=== PATIENT | female | born 1960 | race Caucasian/White ===

== ENCOUNTER 2017-04-19 14:41 | Observation (INO) ==
[2017-04-19] MEDS ORDERED: ONDANSETRON 4 MG/2 ML INJECTION IVP PRN (15:16)
[2017-04-19 16:52] VITALS: BMI 23.0
--- NOTE | 2017-04-19 17:08 | History & Physical Report ---
<Farhana Lyons V - Last Filed: 04/19/17 17:04> History of Present Illness Date: 04/19/17 Chief complaint: RLE DVT HPI: Yessi is a pleasant 56-year-old female who has been under the care of Dr. Jose Barnett Do with [facility]. Patient presented to see him yesterday in which he underwent outpatient d-dimer draw that was elevated greater than 1600. She then had an outpatient venous Doppler of the right lower extremity. Today that did reveal a acute DVT in the common femoral vein. She is noted to be hypertensive and tachycardic. Due to these findings, she was advised to come to [facility] for direct admission for further medical workup and treatment. Patient is seen on initial arrival to [facility]. She is alert, oriented and pleasant. She does give an extensive history of recent illnesses. She reports on March 23 she was diagnosed with salmonella and had approximately 2 weeks of significant diarrhea and dehydration. She reports that during this time she started to become tachycardic and heart rate was into the 180s at one point. She reports that on March 30 she started having significant neck pain. She has been under the treatment of a chiropractor for neck pain. She also developed right lower extremity discomfort at that time. It was thought that she had muscular in nature type symptoms. Last , April 13. She did take a road trip to [place], [place] and returned the following day. She has continued to have pain in the right lower extremity. Since that time. Other risk factors include hormone replacement therapy. She is a former smoker however quit in 1995. Review of Systems Comprehensive ROS: completed and no additional positive findings except those as stated - Musculoskeletal Musculoskeletal: Present: as per HPI Musculoskeletal Comments: Pain to right lower extremity. Posterior right knee PFSH HTN Hypothyroidism Hypercholesterolemia Hormone replacement therapy Surgical History: The lateral carpal tunnel repair. Breast implants. [place]-5-0 years ago Family History: Father in his 50s for unknown reason. Mother-hypertension, history of blood clot - Social History Smoking status: Former smoker (quit in 1995) Substance use type: does not use Alcohol intake: current Alcohol intake frequency: 0-2 drinks per day Housing: house Household members: spouse Social history: Primary care provider Dr Edgard Barnett- [facility], [place], [place] Medications Home Medications Medication Instructions Recorded Confirmed Type Atorvastatin Calcium [Lipitor] 1 tab PO HS #0 06/02/15 04/19/17 History Amlodipine Besylate [Norvasc] 5 mg PO DAILY 04/19/17 04/19/17 History Biotin 10 mg PO DAILY 04/19/17 04/19/17 History Cholecalciferol (Vitamin D3) 2,000 unit PO DAILY 04/19/17 04/19/17 History [Vitamin D3] Coenzyme Q-10 [Co Q-10] 200 mg PO DAILY 04/19/17 04/19/17 History Lisinopril [Prinivil] 20 mg PO DAILY 04/19/17 04/19/17 History Lutein 20 mg PO DAILY 04/19/17 04/19/17 History Milk Thistle 175 mg PO DAILY 04/19/17 04/19/17 History Thyroid,Pork [Nature-Throid] 16.25 mg PO DAILY 04/19/17 04/19/17 History Allergies Allergy/AdvReac Type Severity Reaction Status Date / Time diphenhydramine Allergy Severe "THROAT Verified 04/19/17 17:03 SWELLS UP" Exam Vital Signs: Temperature 99.1 F 04/19/17 16:50 Pulse Rate 113 H 04/19/17 16:50 Respiratory Rate 20 04/19/17 16:50 Blood Pressure 173/93 H 04/19/17 16:50 Pulse Oximetry 98 04/19/17 16:50 Oxygen Delivery Method Room Air Telemetry Rhythm: Sinus Tachycardia Height/Weight/BMI: Height 1.7 m Weight 66.7 kg Body Mass Index 23.0 - Constitutional Present: no acute distress, well nourished, well developed - Routine HEENT Exam Head: Present: normocephalic Eye: Present: EOMI, PERRL ENT: Present: mucous membranes moist, dentition normal - Routine Respiratory Exam Present: CTA bilaterally. Absent: wheezes - Routine Cardiovascular Exam Present: RRR, S1, S2, no murmur, tachycardia (110). Absent: murmur - Routine Abdominal Exam Present: soft, normoactive bowel sounds, non distended. Absent: tenderness - Routine Extremities Exam Present: normal capillary refill - Routine Back/Spine/Pelvis Exam Back/Spine: Present: full ROM - Routine Skin Exam Present: intact, dry, warm - Routine Neurological Exam Present: alert, oriented X3, CN II-XII intact, moving all extremities - Routine Psychiatric Exam Present: normal affect, normal thought process Results - Labs CBC & Chem 7: 04/19/17 16:52 04/19/17 16:52 Assessment and Plan (1) DVT of lower extremity (deep venous thrombosis) Current visit: Yes Status: Acute (2) Tachycardia Current visit: Yes Status: Acute (3) Hypertension Current visit: Yes Status: Chronic (4) Hypercholesterolemia Current visit: Yes Status: Chronic (5) Hypothyroidism Current visit: Yes Status: Acute (6) Hormone replacement therapy Current visit: Yes Status: Chronic DVT Prophylaxis: Lovenox Resuscitation Status: Full Code Assessment and Plan: Impression Acute DVT in right lower extremity Tachycardia Uncontrolled hypertension Hypothyroidism Hypercholesterolemia. Chronic hormone replacement therapy Plan Admit patient to outpatient observation under the care of Dr. Sood for acute DVT in the right lower extremity with tachycardia and hypertension. Will obtain the following laboratory studies on admission, CBC, BMP, Obtain factor V Leiden, INR, PTT, anti-cardiolipin to rule out underlying hemolytic condition that may have caused acute thrombus Given persistent tachycardia and hypertension. Will obtain CT a to rule out pulmonary emboli Initiate anticoagulation therapy with Lovenox 100 milligrams subcutaneous daily. We did discuss chronic anticoagulation options including warfarin versus a newer agent. Will discuss this tomorrow morning with primary care provider and patient. Monitor patient cardiac telemetry given tachycardia. Monitor blood pressure. Once evaluate home medications. May need to consider increasing antihypertensive agents or adding an additional medication NS at 150 ml/hr for hydration Will recheck CBC and BMP tomorrow morning to follow basic labs. Discuss further orders and plan of care with attending, Dr. Sood. At time of discharge medical care will return to primary care provider at [facility], Dr. R[facility] Course Summary Disclaimer: The visit summary below is not to be considered part of the above Progress Note. Hospital Course: 04/19/17 admission Impression Acute DVT in right lower extremity Tachycardia Uncontrolled hypertension Hypothyroidism Hypercholesterolemia. Chronic hormone replacement therapy Plan Admit patient to outpatient observation under the care of Dr. Sood for acute DVT in the right lower extremity with tachycardia and hypertension. Will obtain the following laboratory studies on admission, CBC, BMP, Obtain factor V Leiden, INR, PTT, anti-cardiolipin to rule out underlying hemolytic condition that may have caused acute thrombus Given persistent tachycardia and hypertension. Will obtain CT a to rule out pulmonary emboli Initiate anticoagulation therapy with Lovenox 100 milligrams subcutaneous daily. We did discuss chronic anticoagulation options including warfarin versus a newer agent. Will discuss this tomorrow morning with primary care provider and patient. Monitor patient cardiac telemetry given tachycardia. Monitor blood pressure. Once evaluate home medications. May need to consider increasing antihypertensive agents or adding an additional medication NS at 150 ml/hr for hydration Will recheck CBC and BMP tomorrow morning to follow basic labs. Discuss further orders and plan of care with attending, Dr. Sood. At time of discharge medical care will return to primary care provider at [facility], Dr. Edgard Barnett <Ovidio Sood - Last Filed: 04/19/17 18:59> History of Present Illness Date: 04/19/17 [facility] Patient Stated Medical History Angina Yes: LAST 3 WEEKS Hypertension Yes Other GI Yes: CONSTIPATION Other Hematologic Yes: CURRENTLY HAS BLOOD CLOTS Depression Yes: HISTORY OF Post Menopausal Yes: CURRENTLY GOING THROUGH MENOPAUSE Exam Vital Signs: Temperature 99.1 F 04/19/17 16:50 Pulse Rate 113 H 04/19/17 16:50 Respiratory Rate 20 04/19/17 16:50 Blood Pressure 173/93 H 04/19/17 16:50 Pulse Oximetry 98 04/19/17 16:50 Oxygen Delivery Method Room Air Height/Weight/BMI: Height 1.7 m Weight 66.7 kg Body Mass Index 23.0 Results - Labs CBC & Chem 7: 04/19/17 16:52 04/19/17 16:52 Assessment and Plan (1) DVT of lower extremity (deep venous thrombosis) Current visit: Yes Status: Acute (2) Hypertension Current visit: Yes Status: Chronic (3) Hypercholesterolemia Current visit: Yes Status: Chronic (4) Hypothyroidism Current visit: Yes Status: Acute (5) Tachycardia Current visit: Yes Status: Acute (6) Hormone replacement therapy Current visit: Yes Status: Chronic Assessment and Plan: Impression Acute DVT in right lower extremity Thrombophlebitis secondary to DVT Tachycardia Uncontrolled hypertension Hypothyroidism Hypercholesterolemia. Chronic hormone replacement therapy Have independently interviewed and examined pt. Chart reviewed. Case discussed with my CLINICAL REVIEW NURSE. Care plan developed with my supervision; agree with above. Woke with pain to her right leg on Sat, 04/15. Pain persisted. Was seen in yesterday and D-Dimer ran; found to be elevated so had US RLE today showing DVT of right common femoral vein. No recent trauma, but had significant bout of diarrhea with subsequent dehydration several weeks ago. Has not quite made it back to her usual functional self. Also has had recent prolonged car travel. Note slight SOA; no cough or hemoptysis. Not having f/c. Lungs: clear CV: tachy, regular EXT: no edema bilaterally Plan: OBS for treatment of DVT. Start Lovenox 100mg SQ daily (1.5mg/kg) - initiate tonight. Will also give warfarin 5mg this evening. Will d/w her PCP tomorrow about chronic treatment. CTA to exclude PE. IVF NS at 150 cc/hr due to tachycardia, as well as to help protect renal status. Tele. Increase Norvasc to 10mg to help BP, continue lisinopril 20mg-pt take at night. Hold HRT. Hospital Course Summary Disclaimer: The visit summary below is not to be considered part of the above Progress Note.
[2017-04-19] MEDS ORDERED: NS 100 ML ONE (17:30)
[2017-04-19] MEDS ORDERED: IOHEXOL 350mg/ml 75ml INJECTION ONE (17:30)
[2017-04-19] MEDS ORDERED: SALINE FLUSH 10ml SYRINGE ONE (17:30)
[2017-04-19] MEDS: NS 1,000 ML IV SCH (17:31)
[2017-04-19] MEDS: ENOXAPARIN 100 MG/ML INJECTION SQ SCH (17:31)
[2017-04-19] MEDS ORDERED: WARFARIN 5 MG TABLET PO ONE (19:00)
[2017-04-19] MEDS: ACETAMINOPHEN 325 MG TABLET PO PRN (20:23)
[2017-04-19] MEDS ORDERED: --POM--ATORVASTATIN 10 MG TABLET PO SCH (21:00)
[2017-04-19] MEDS ORDERED: --POM--LISINOPRIL 20 MG TABLET PO SCH (21:00)
[2017-04-20] MEDS: NS 1,000 ML IV SCH ×2 (01:06→07:57)
[2017-04-20] MEDS: ACETAMINOPHEN 325 MG TABLET PO PRN ×4 (01:11→18:25)
--- NOTE | 2017-04-20 07:57 | CT Scan Report ---
Indication: Rule out PE. Known DVT, tachycardia PROCEDURE: CT angio pulm emboli: Encounter: Initial Comparison: None Technique: Axial CT pulmonary angiographic phase images were performed through the chest after the administration of intravenous contrast. Coronal and Sagittal MIP reconstructed images were created and reviewed. Automated Exposure Control and Iterative Reconstruction dose reducing techniques were utilized. Contrast: Omnipaque 350 59 mL Findings: Pulmonary arteries: Exam is diagnostic to the subsegmental pulmonary arterial level. No filling defects identified to suggest a pulmonary embolus. Other findings: Minimal emphysema. Lungs are clear. Bilateral breast implants. No pleural effusion or pneumothorax. No worrisome pulmonary nodules or masses. The central airways are patent. No axillary or mediastinal adenopathy by CT size criteria. Slightly increased number of mediastinal nodes overall. Heart size is normal. No pericardial effusion. The upper abdomen shows no acute findings. Impression: No pulmonary embolus or acute intrathoracic disease process seen. There is a preliminary report by [employer]. .
[2017-04-20] MEDS ORDERED: --POM--AMLODIPINE 10 MG TABLET PO SCH (09:00)
[2017-04-20] MEDS ORDERED: COENZYME Q-10 200mg TABLET PO SCH (09:00)
[2017-04-20] MEDS ORDERED: LUTEIN 20 MG CAPSULE PO SCH (09:00)
[2017-04-20] MEDS ORDERED: BIOTIN 10 MG PO SCH (09:00)
[2017-04-20] MEDS ORDERED: THYROID 30 MG PO SCH (09:00)
[2017-04-20] MEDS ORDERED: MILK THISTLE 175 MG PO SCH (09:00)
[2017-04-20] MEDS ORDERED: LISINOPRIL 20 MG TABLET PO SCH (09:00)
[2017-04-20] MEDS: ENOXAPARIN 100 MG/ML INJECTION SQ SCH (09:29)
[2017-04-20] MEDS ORDERED: TIZANIDINE 4 MG PO PRN (10:01)
--- NOTE | 2017-04-20 10:34 | Discharge Instructions ---
Discharge Plan - Med Rec/Dispo Referrals/Follow Up: susie Barnett [Other] (Please follow up with Monday04/24/17. Will need INR at that time.) Additional Instructions: You will give yourself Lovenox injections daily. Along with taking warfarin 2 milligrams daily. You will need to follow-up with Dr. Barnett on Tuesday 04/24 to have an INR lab drawn at that time. We did increase your Norvasc (BP medication) to 10mg daily. New Rx given. Prescriptions: New Amlodipine [Norvasc] 10 mg PO DAILY #30 tablet Enoxaparin Sodium [Lovenox] 100 mg SQ DAILY #7 syringe Warfarin [Coumadin] 2 mg PO 1700 #7 tab Acetaminophen [Tylenol] 650 mg PO Q5H PRN tablet PRN Reason: Discomfort Continue Atorvastatin Calcium [Lipitor] 1 tab PO HS #0 Hydrocodone/Acetaminophen ([place] 5-325 Tablet) 1 tab PO Q6H PRN #14 tab PRN Reason: PAIN Lisinopril [Prinivil] 20 mg PO DAILY Thyroid,Pork [Nature-Throid] 16.25 mg PO DAILY Lutein 20 mg PO DAILY Milk Thistle 175 mg PO DAILY Cholecalciferol (Vitamin D3) [Vitamin D3] 2,000 unit PO DAILY Coenzyme Q-10 [Co Q-10] 200 mg PO DAILY Biotin 10 mg PO DAILY Tizanidine [Zanaflex] 4 mg Q8H PRN PRN Reason: Pain Discontinued Amlodipine Besylate [Norvasc] 5 mg PO DAILY Discharge Instructions/Outpatient Orders: Final Provider Discharge Instructions Location: Determined By Patient - Disposition 01 Discharged Home, Self-Care
--- NOTE | 2017-04-20 10:52 | Discharge Summary ---
Discharge Information Date of admission: 04/19/17 15:53 <Ovidio Sood - 04/20/17 15:04> 04/19/17 15:53 <Benjie Lyonslive Barrett - 04/20/17 10:52> Anticipated date of discharge: 04/20/17 <[place] - 04/20/17 10:52> Attending Physician: Ovidio Sood MD <Ovidio Sood - 04/20/17 15:04> Ovidio Sood MD <[place],Farhana V - 04/20/17 10:52> Primary care physician: Susie Garcia <Ovidio Sood - 04/20/17 15:04> Susie Garcia <[place] - 04/20/17 10:52> Consults: None <[place] Nena - 04/20/17 10:52> - Discharge Diagnosis Discharge Diagnosis: Acute DVT Tachycardia-resolved Uncontrolled hypertension,-resolved <[place] V - 04/20/17 10:52> - Procedures Procedures: None <[place] Nena - 04/20/17 10:52> - Laboratory Labs: 04/20/17 04:31 04/20/17 04:30 <Ovidio Sood - 04/20/17 15:04> 04/20/17 04:31 04/20/17 04:30 <[place] V - 04/20/17 10:52> - Microbiology None <[place] V - 04/20/17 10:52> - Radiology Radiology: CTA-negative for acute pulmonary emboli. <[place] V - 04/20/17 10:52> - Pathology None <[place]ana Nena - 04/20/17 10:52> History of Present Illness HPI: Yessi is a pleasant 56-year-old female who has been under the care of Dr. Jose Barnett Do with [facility]. Patient presented to see him yesterday in which he underwent outpatient d-dimer draw that was elevated greater than 1600. She then had an outpatient venous Doppler of the right lower extremity. Today that did reveal a acute DVT in the common femoral vein. She is noted to be hypertensive and tachycardic. Due to these findings, she was advised to come to [facility] for direct admission for further medical workup and treatment. Patient is seen on initial arrival to [facility]. She is alert, oriented and pleasant. She does give an extensive history of recent illnesses. She reports on March 23 she was diagnosed with salmonella and had approximately 2 weeks of significant diarrhea and dehydration. She reports that during this time she started to become tachycardic and heart rate was into the 180s at one point. She reports that on March 30 she started having significant neck pain. She has been under the treatment of a chiropractor for neck pain. She also developed right lower extremity discomfort at that time. It was thought that she had muscular in nature type symptoms. Last , April 13. She did take a road trip to [place], [place] and returned the following day. She has continued to have pain in the right lower extremity. Since that time. Other risk factors include hormone replacement therapy. She is a former smoker however quit in 1995. <Farhana Lyons V - 04/20/17 10:52> Hospital Course This is a general summary of the patient's hospital course. For more details refer to the complete medical record. <Ovidio Sood - 04/20/17 15:04> This is a general summary of the patient's hospital course. For more details refer to the complete medical record. <Farhana Lyons V - 04/20/17 10:52> Hospital course: 04/19/17 admission Impression Acute DVT in right lower extremity Tachycardia Uncontrolled hypertension Hypothyroidism Hypercholesterolemia. Chronic hormone replacement therapy Hospital course- Yessi is a very pleasant 56-year-old female who was admitted on 04/19 following findings in the outpatient setting of an acute DVT in the right lower extremity. Given her persistent tachycardia and hypertensive. She was accepted and directly admitted to [facility] under the care of Dr. Sood. A CT a was performed to rule out pulmonary emboli, which was found to be negative. Patient's blood pressure was controlled using her home medications. We did increase her home Norvasc to 10 milligrams daily. She was given IV hydration. She was started on Lovenox 100 milligrams subcutaneous daily as well as bridge with Coumadin. She did receive 5 milligrams by mouth 1. Last evening on 04/19. Did review all anticoagulation options. Spoke with her primary care provider, Dr. Susie Barnett- with [facility]. Recommended discharge patient on one week of Lovenox subcutaneous bridging with Coumadin 2 milligrams daily. He would like to see patient in his office on Tuesday 04/24 2. Recheck an INR at that time. This discharge plan is discussed in great detail with patient at the bedside. She is instructed that if she is to have worsening symptoms, chest pain, shortness of breath or other concerns to contact her primary care provider over the weekend or present to an emergency room. <Farhana Lyons V - 04/20/17 10:52> Time spent with patient: greater than 35 minutes <Farhana Lyons 04/20/17 10:52> DVT Prophylaxis: Lovenox, Coumadin <Farhana Lyons V 04/20/17 10:52> Discharge Plan - Med Rec/Dispo Referrals/Follow Up: susie Barnett [Other] (Please follow up with Monday04/24/17. Will need INR at that time. HAVE INR DRAWN ON 04/21/2017 AT 1:15 PM AT THE LAB FOLLOW UP APPOINTMENT ON 04/24/2017 AT 11:30 AM, OFFICE NUMBER [phone] ) < Ovidio Sood - 04/20/17 15:04> uv Instructions: Warfarin (By mouth), [facility] [place] Discharge Instructions < Ovidio Sood - 04/20/17 15:04> Additional Instructions: You will give yourself Lovenox injections daily. Along with taking warfarin 2 milligrams daily. You will need to follow-up with Dr. Barnett on Tuesday 04/24 to have an INR lab drawn at that time. <Ovidio Sood - 04/20/17 15:04> Prescriptions: New Enoxaparin Sodium [Lovenox] 100 mg SQ DAILY #7 syringe Warfarin [Coumadin] 2 mg PO 1700 #7 tab Acetaminophen [Tylenol] 650 mg PO Q5H PRN tablet PRN Reason: Discomfort Amlodipine Besylate [Norvasc] 5 mg PO DAILY #30 tablet Continue Atorvastatin Calcium [Lipitor] 1 tab PO HS #0 Hydrocodone/Acetaminophen ([place] 5-325 Tablet) 1 tab PO Q6H PRN #14 tab PRN Reason: PAIN Lisinopril [Prinivil] 20 mg PO DAILY Thyroid,Pork [Nature-Throid] 16.25 mg PO DAILY Lutein 20 mg PO DAILY Milk Thistle 175 mg PO DAILY Cholecalciferol (Vitamin D3) [Vitamin D3] 2,000 unit PO DAILY Coenzyme Q-10 [Co Q-10] 200 mg PO DAILY Biotin 10 mg PO DAILY Tizanidine [Zanaflex] 4 mg Q8H PRN PRN Reason: Pain Discontinued Amlodipine Besylate [Norvasc] 5 mg PO DAILY <Ovidio Sood - 04/20/17 15:04> Discharge Instructions/Outpatient Orders: Final Provider Discharge Instructions Location: Determined By Patient Final Provider Discharge Instructions Location: Determined By Patient < Ovidio Sood - 04/20/17 15:04> - Disposition 01 Discharged Home, Self-Care <Ovidio Sood - 04/20/17 15:04> - Attestation Attestation Narrative: 04/20/17 14:52 I have independently interviewed and examined pt prior to discharge. Chart reviewed. Case discussed with my PROGRAM DIR. Care plan developed with my supervision; agree with above. Doing okay this morning. More swelling to right leg. Breathing well. Eating well. Creatinine stable post contrast. Lungs: clear bilaterally CV: regular AB: soft nt/nd +BS MSE: awake alert appropriate Plan: Will discharge to home to continue with Coumadin with Lovenox overlap for 7 days. Discussed bleeding risks with patient and sign/symptoms to watch for. Stress importance of continued outpatient follow up. Encourage to increase activities but avoid activities where she could have falls or trauma. Avoid sodium to help bp control and decrease edema of leg. Recommended against NSAID for pain control - Tylenol safe. To F/U with PCP on Monday for lab and evaluation. Medically stable for discharge to home. <Ovidio Sood - 04/20/17 15:04>
--- NOTE | 2017-04-20 12:09 | Discharge Instructions ---
Discharge Plan - Med Rec/Dispo Referrals/Follow Up: susie Barnett [Other] (Please follow up with Monday04/24/17. Will need INR at that time. HAVE INR DRAWN ON 04/21/2017 AT 1:15 PM AT THE LAB FOLLOW UP APPOINTMENT ON 04/24/2017 AT 11:30 AM, OFFICE NUMBER [phone] ) Jonas Instructions: Warfarin (By mouth), [facility] [place] Discharge Instructions Additional Instructions: You will give yourself Lovenox injections daily. Along with taking warfarin 2 milligrams daily. You will need to follow-up with Dr. Barnett on Tuesday 04/24 to have an INR lab drawn at that time. Prescriptions: New Enoxaparin Sodium [Lovenox] 100 mg SQ DAILY #7 syringe Warfarin [Coumadin] 2 mg PO 1700 #7 tab Acetaminophen [Tylenol] 650 mg PO Q5H PRN tablet PRN Reason: Discomfort Amlodipine Besylate [Norvasc] 5 mg PO DAILY #30 tablet Continue Atorvastatin Calcium [Lipitor] 1 tab PO HS #0 Hydrocodone/Acetaminophen ([place] 5-325 Tablet) 1 tab PO Q6H PRN #14 tab PRN Reason: PAIN Lisinopril [Prinivil] 20 mg PO DAILY Thyroid,Pork [Nature-Throid] 16.25 mg PO DAILY Lutein 20 mg PO DAILY Milk Thistle 175 mg PO DAILY Cholecalciferol (Vitamin D3) [Vitamin D3] 2,000 unit PO DAILY Coenzyme Q-10 [Co Q-10] 200 mg PO DAILY Biotin 10 mg PO DAILY Tizanidine [Zanaflex] 4 mg Q8H PRN PRN Reason: Pain Discontinued Amlodipine Besylate [Norvasc] 5 mg PO DAILY Discharge Instructions/Outpatient Orders: Final Provider Discharge Instructions Location: Determined By Patient Final Provider Discharge Instructions Location: Determined By Patient - Disposition 01 Discharged Home, Self-Care
[2017-04-20] MEDS ORDERED: WARFARIN 2 MG TABLET PO ONE (13:12)
[2017-04-20 16:20] VITALS: BP 134/73; RESP 16; TEMP 97.8; O2SAT 98
[2017-04-20 16:50] VITALS: PULSE 90
== END 2017-04-20 18:45 | disposition home or self-care (01) ==
LOC: SRG → MED 15:54
PROVIDERS: ADMIT Hospitalist; ATTEND Hospitalist